=== PATIENT | female | born 1935 | race Asian ===

== ENCOUNTER 2016-05-21 12:49 | Inpatient (IN) | payer OTHER ==
[2016-05-21 13:29] LABS: ABSOLUTE NEUTROPHIL COUNT 4.9 K/mm3 (1.8-7.7); BASO % 0.6 % (0.2-1.0); EOS # 0.1 (0.0-0.5); EOS % 1.9 % (0.9-2.9); HEMATOCRIT 44.2 % (37.0-47.0); HEMOGLOBIN 13.9 gm/l (12.0-16.0); IMM NEUT% 0.5 % (0-1); LYMPH # 0.8 (1.0-4.8); LYMPH % 12.9 % (15-45); MEAN CORPUSCULAR HEMOGLOBIN 30.8 pg (27.0-31.0); MEAN CORPUSCULAR HGB CONC 31.4 g/dl (33.0-37.0); MEAN PLATELET VOLUME 10.4 fl (7.4-10.4); MONO # 0.4 (0.0-0.8); MONO % 6.5 % (4-12); NEUT % 77.6 % (43-75); PLATELET COUNT 147 K/mm3 (130-400); RED CELL DISTRIBUTION WIDTH 13.6 % (11.5-14.5)
[2016-05-21 13:40] LABS: ALB/GLOB RATIO 1.4 (>1.0); ALBUMIN 4.3 gm/dL (3.5-5.7); CALCIUM 9.9 mg/dL (8.6-10.3); MAGNESIUM 2.1 mg/dL (1.9-2.7)
[2016-05-21 13:53] LABS: CKMB 4.5 ng/ml (<4.3); TROPONIN I < 0.05 ng/ml (<0.05)
[2016-05-21 14:01] LABS: ARTERIAL BLOOD GAS BASE EXCESS -5.7 mmol/L (-2.0-2.0); ARTERIAL BLOOD GAS HCO3 24.1 mmol/L (22.0-28.0); ARTERIAL BLOOD GAS PCO2 68.1 mmHg (35.0-45.0); ARTERIAL BLOOD GAS PO2 111.5 mmHg (80.0-90.0); ARTERIAL BLOOD GAS pH 7.167 (7.350-7.450)
[2016-05-21] MEDS ORDERED: ALBUTEROL SULFATE 5MG/ML INHALANT 20 ML BOT ONE (14:06)
--- NOTE | 2016-05-21 14:07 | CT ---
C-SPINE W/O CON COMPARISON: None. HISTORY: Altered mental status. Decreased level of consciousness. Possible neck injury. Technique: Using a [employer] Aquilion [address] scanner, images obtained through the cervical spine. An automated dose reduction technique was used to minimize patient radiation dose. Dose information: CTDIvol (mGy) 14.40 DLP(mGycm): 324.00 FINDINGS: Vertebral alignment: Moderate dextroscoliosis. Grade 1 anterolisthesis of C4 and C5. C1-2 alignment: Normal. Craniocervical junction: Normal. Vertebral bodies: No fracture bone destruction. Osteophytes at C5-6, C6-7, and C7-T1. Intervertebral discs: Calcification and moderate narrowing at C3-4. Vacuum phenomenon and moderate narrowing at C4-5. Moderate narrowing at C5-6. Severe narrowing at C6-7. Spinal canal: Normal. Facet joints and posterior arches: Multilevel facet joint narrowing and osteophytes. Ankylosis on the right at C3-4. Prevertebral soft tissues: No soft tissues 1. Severe atherosclerotic calcific plaquing of the left common carotid bifurcation and the origin of the left internal carotid artery. Lung apices and superior mediastinum: Normal. Airway: Normal. IMPRESSION: 1. No acute finding. No fracture or dislocation. 2. Moderate dextroscoliosis. Degenerative anterolisthesis of C4 and C5. 3. Spondylosis, moderate C3-4, C4-5, C5-6, severe C6-7. 4. 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 5. Severe atherosclerotic calcification of the left common carotid bifurcation and the proximal left internal carotid artery. Report was sent to the emergency department electronic medical record system 05/21/2016 at 14:05
--- NOTE | 2016-05-21 14:07 | CT ---
HEAD W/O CON COMPARISON: CT head without contrast 08/24/2009 HISTORY: 80-year-old female with altered mental status. TECHNIQUE: Using a [employer] Aquilion [address] scanner, images were obtained through the head. An automated dose reduction technique was used to minimize patient radiation dose. DOSE INFORMATION: CTDIvol (mGy): 51.70 DLP(mGycm): 938.90 FINDINGS: Mass: None Intracranial Hemorrhage: None Acute Infarction: None Cerebral hemispheres: No acute finding. Scattered foci of low-attenuation in the white matter both hemispheres. Basal ganglia: Normal Thalami: Normal Brainstem: Normal Cerebellum: Normal Ventricles: Normal Basilar cisterns: Normal Corpus callosum: Normal Pituitary fossa: Normal Middle ears and mastoid air cells: Normal Orbits and sinuses: Bilateral aphakia. 8 mm cyst, anterior left maxillary sinus. Skull and scalp: Normal Dural sinuses and vessels: Normal IMPRESSION: 1. No acute finding. No intracranial hemorrhage or cerebral edema. Scattered chronic small vessel schema change in the white matter of both cerebral hemispheres. 2. Incidentally noted bilateral aphakia and a small mucus retention cyst in the left maxillary sinus. The report was sent to the emergency department electronic medical record system 05/21/2016 at 14:05
[2016-05-21] MEDS ORDERED: DEXAMETHASONE SOD PHOS 10 MG/1 ML VIAL ONE (14:14)
--- NOTE | 2016-05-21 14:16 | RAD ---
CHEST - 1 VIEW COMPARISON: Portable chest x-ray, 07/07/2015 HISTORY: Altered level of consciousness. FINDINGS: Views: Frontal chest. Lungs: The inspiratory volumes are small, which probably explains increased interstitial opacity and atelectasis at the bases. Heart and vessels: Normal Trachea and bronchi: Normal Mediastinum and helga: Normal Costophrenic sulci: Normal Chest wall and bones: Normal Upper abdomen: Normal. IMPRESSION: Negative one view chest.
[2016-05-21 14:19] LABS: URINE BILIRUBIN NEGATIVE (NEGATIVE); URINE BLOOD NEGATIVE (NEGATIVE); URINE GLUCOSE (UA) NEGATIVE (NEGATIVE); URINE LEUKOCYTE ESTERASE NEGATIVE (NEGATIVE); URINE NITRITE NEGATIVE (NEGATIVE); URINE PROTEIN TRACE (NEGATIVE); URINE UROBILINOGEN NORMAL (0-1 mg/dl)
[2016-05-21 14:21] LABS: URINE APPEARANCE CLEAR; URINE COLOR YELLOW
[2016-05-21] MEDS ORDERED: SODIUM CHLORIDE 0.9% 250 ML IV ONE (14:44)
[2016-05-21] MEDS ORDERED: AZITHROMYCIN 500 MG VIAL ONE (14:44)
[2016-05-21 15:05] LABS: ARTERIAL BLOOD GAS HCO3 23.6 mmol/L (22.0-28.0); ARTERIAL BLOOD GAS PCO2 59.9 mmHg (35.0-45.0); ARTERIAL BLOOD GAS PO2 54.2 mmHg (80.0-90.0); ARTERIAL BLOOD GAS pH 7.214 (7.350-7.450)
[2016-05-21] MEDS ORDERED: MENTHOL/CETYLPYRD 1 EACH LOZENGE PO PRN (15:30)
[2016-05-21] MEDS ORDERED: BISACODYL 5 MG TABLET.EC PO PRN (15:30)
[2016-05-21] MEDS ORDERED: D5 1/2NS with 20 mEq KCL 1,000 ML IV SCH (15:30)
[2016-05-21] MEDS ORDERED: ACETAMINOPHEN 650 MG SUP PR PRN (15:30)
[2016-05-21] MEDS ORDERED: BISACODYL 10 MG SUP PR PRN (15:30)
[2016-05-21] MEDS ORDERED: MAGNESIUM HYDROXIDE 30 ML UDCUP PO PRN (15:30)
[2016-05-21] MEDS ORDERED: SODIUM CHLORIDE 0.9% 100 ML IV PRN (15:30)
[2016-05-21] MEDS ORDERED: BLISTEX LIPSTICK 1 EACH TP PRN (15:30)
[2016-05-21] MEDS ORDERED: CEFTRIAXONE SODIUM 1 G VIAL ONE (15:33)
[2016-05-21] MEDS ORDERED: ALBUTEROL NEB 2.5 MG/3 ML VIAL.NEB NEB PRN (15:34)
[2016-05-21] MEDS ORDERED: PUMP TUBING ONE (15:35)
[2016-05-21] MEDS: ALBUTEROL/IPRATROPIUM 2.5/0.5 MG 3 ML/EACH DOSE NEB SCH ×3 (16:17→21:43)
[2016-05-21 16:24] VITALS: BMI 29.7
[2016-05-21] MEDS ORDERED: SODIUM CHLORIDE 0.9% FLUSH 10 ML ONE (16:33)
[2016-05-21] MEDS ORDERED: IV START KIT ONE (16:33)
[2016-05-21] MEDS: PANTOPRAZOLE SODIUM 40 MG VIAL IV SCH (16:46)
[2016-05-21] MEDS: METHYLPRED SOD SUCCINATE 40 MG VIAL IV SCH (16:46)
[2016-05-21] MEDS: CEFTRIAXONE 1 GRAM DUPLEX 50 ML IV SCH (17:34)
[2016-05-21] MEDS ORDERED: FUROSEMIDE 40 MG/4 ML VIAL IV ONE (17:54)
[2016-05-21] MEDS ORDERED: LACTATED RINGERS 500 ML IV ONE (18:09)
[2016-05-21] MEDS: DOCUSATE SODIUM 100 MG CAPSULE PO SCH (21:19)
--- NOTE | 2016-05-21 21:56 | HP ---
ASHLEY HOROWITZ [id number] DATE OF ADMISSION: 05/21/2016 CHIEF COMPLAINT: Altered level of consciousness. HISTORY OF PRESENT ILLNESS: The patient is an 80-year-old female well-known to the Hospitalist Service for chronic hypoxic and hypercapneic respiratory failure associated with chronic obstructive pulmonary disease who was brought to the [facility] Emergency Department because of altered level of consciousness and shortness of breath. The family has noticed these symptoms for the last two days and they have been getting worse. They were actually able to transport her to the hospital using a wheelchair and a private vehicle. In the emergency department she was found to have acute worsening of her chronic hypoxic and hypercapnic respiratory failure. Her initial PC02 was 68 on supplemental oxygen, with a pH of 7.17. She was treated with BiPAP therapy and showed improvement in her pH to 7.21 and some improvement in her level of consciousness. History is limited and obtained from the family. The patient is Albanian-speaking only and due to her decreased level of consciousness is not able to provide much history. The patient's daughters report that she has had a chronic cough, but does not seem to be any worse than usual. REVIEW OF SYSTEMS: Negative for any recent fevers or chills. She has had no upper respiratory symptoms. She has a chronic nonproductive cough. She has chronic wheezing gets frequent nebulizer treatments at home. She has had no increased lower extremity edema. No reports of any chest pain. No reports of any nausea, vomiting or abdominal pain. She did have a loose stool yesterday. No new pain complaints. No history of any headaches, fainting, blackouts or seizures. She has had no falls. She is basically bedbound, but transfers using a wheelchair. She has had no urinary complaints. Review of systems is otherwise negative. PAST MEDICAL HISTORY: 1. Notable for multiple hospitalizations for COPD exacerbations and hypoxic and hypercapnic respiratory failure. Her last hospitalization was in July of 2015 and June of 2015 for similar problems. She does have chronic respiratory failure and is on chronic oxygen therapy, usually at one liter by nasal cannula. She does not have CPAP at home. 2. She has a history of some asthma as well and is according to the family on chronic prednisone therapy, but the dose is unknown, and the med list from the primary care provider does not list this. 3. She has had a history of chronic essential hypertension. 4. Osteoporosis. 5. Paroxysmal atrial fibrillation. 6. She has had a history of obesity, with a body mass index around 30. 7. She has had some chronic diastolic heart failure, with a preserved ejection fraction. Her last echocardiogram was in July of 2015, with an ejection fraction of 55-60%, and this showed elevated right ventricular systolic pressures up to 72 mmHg, with a moderate amount of tricuspid regurgitation. 8. She is chronic nonambulatory status due to a prior femur fracture which was never surgically treated. 9. She has a history of osteoporosis. 10. Some gastroesophageal reflux disease. PAST SURGICAL HISTORY: Significant for: 1. An open cholecystectomy in August of 2009. 2. Bilateral cataract surgeries. ALLERGIES: Adverse reactions have been documented to: 1. Enoxaparin, which caused thrombocytopenia in the past. 2. She has also poorly tolerated hydrocodone, with increased confusion. CURRENT MEDICATIONS: Consist of: 1. Verapamil extended-release. She is prescribed 360 mg once daily. The daughters initially states she was taking it twice daily. This needs to be confirmed that she should be on it once a day. 2. She also takes sucralfate 1 gram before meals and at bedtime. 3. Zoloft 25 mg daily. 4. Prednisone, dose unknown, but presumed to be 10 mg daily. 5. Lisinopril 20 mg twice daily. 6. Imdur SR 30 mg twice daily. 7. Lasix 20 mg twice daily. 8. Colace 100 mg daily. 9. QVAR 80 mcg per actuation two puffs twice daily. 10. Enteric-coated aspirin 81 mg daily. 11. Albuterol sulfate 2.5 mg nebulized every four hours as needed for wheezing. FAMILY HISTORY: Not well known. SOCIAL HISTORY: She lives with and is cared for by one of her daughters. She had nine children. She immigrated from [place] and lives in [place]. There is no history of tobacco, alcohol or illicit drug use. Immunization status is unknown. Primary care provider is Dr. Erica Matos. PHYSICAL EXAMINATION: VITAL SIGNS: Current vital signs show a temperature of 98.8. Pulse 108. Blood pressure 134/74. Respirations 13. Oxygen saturation is 100%, with an FI02 of 22. Body mass index is 29.8. GENERAL: This is an elderly female who is somnolent, but in no acute distress. HEENT: Exam shows poor dentition. No lesions. NECK: Supple, without lymphadenopathy or thyromegaly. LUNGS: Show diminished breath sounds throughout, with decreased breath sounds in the bases and a prolonged expiratory wheeze. CARDIOVASCULAR: Reveals a regular rate and rhythm, without a murmur. ABDOMEN: Soft, nontender and nondistended, with positive bowel sounds. EXTREMITIES: Showed no peripheral edema. Pulses are diminished, but palpable at the dorsalis pedis arteries bilaterally. EKG: A 12-lead EKG shows a right bundle branch block, with sinus tachycardia. IMAGIN. A portable chest x-ray shows the decreased inspiratory volumes. A CT of the cervical spine shows atherosclerosis of the left common carotid and spondylosis and osteoarthritis of the facet joints, but no acute findings. 2. A CT of the brain shows no acute findings, but chronic small vessel ischemic changes are seen. LABS: CBC shows a white count of 6.3, hemoglobin of 13.9 and a platelet count of 147,000. Lactate is normal at 0.6. Initial arterial blood gas showed a pH of 7.17, a P02 of 111 on supplemental oxygen and a PC02 of 68. Follow-up after BiPAP showed a pH of 7.21, P02 of 54 and a PC02 of 59. Chemistry profile showed a sodium of 140, potassium 4.3, carbon dioxide 27, BUN of 43, creatinine 1.0 and glucose 102. Liver function tests are normal. CK-MB is 4.5. Total CPK was not measured. Troponin-I was less than 0.05. Albumin is 4.3, globulin is 3.1 and lipase is 19. Urine was slightly concentrated, with a specific gravity of 1.020, otherwise unremarkable. Serologies are negative for influenza A and B antigen. ASSESSMENT: 1. Patient has COPD exacerbation, with chronic severe pulmonary hypertension and chronic diastolic heart failure. 2. She has acute on chronic hypoxic and hypercapnic respiratory failure. 3. She has a history of asthma. 4. I suspect she has a bacterial bronchitis. I do not see evidence of pneumonia at this time. 5. She has a history of chronic essential hypertension, which appears to be stable. 6. Chronic gastroesophageal reflux disease, which appears to be stable. 7. Obesity, which is improving. She has had some weight loss and her body mass index is down to 29.8. PLAN: She is admitted to the ICU on BiPAP. I am going to cover her with Zithromax and Rocephin, as well as Solu-Medrol, DuoNebs and albuterol. She will be put on Protonix for GI prophylaxis. At this point she is NPO due to her decreased level of consciousness. She will be given IV fluids. I am going to go ahead and give her a single dose of IV Lasix because of her pulmonary hypertension and concerns about this contributing to her respiratory failure. VTE prophylaxis is indicated, with moderate risk, and mechanical measures are used because of her history of thrombocytopenia associated with heparin analogs. Further treatment and recommendations will depend on her hospital course. At this time her code status appears to be full code, and I think that should be discussed with the family during the hospital stay. cc: Dr. Erica Matos
[2016-05-21] MEDS ORDERED: D5 1/2NS with 10mEq KCL 1,000 ML IV SCH (22:34)
[2016-05-22] MEDS: D5 1/2NS with 20 mEq KCL 1,000 ML IV SCH ×3 (00:47→12:34)
[2016-05-22] MEDS: METHYLPRED SOD SUCCINATE 40 MG VIAL IV SCH ×3 (00:49→17:19)
[2016-05-22 05:41] LABS: ABSOLUTE NEUTROPHIL COUNT 4.2 K/mm3 (1.8-7.7); BASO % 0.2 % (0.2-1.0); HEMATOCRIT 37.2 % (37.0-47.0); HEMOGLOBIN 11.9 gm/l (12.0-16.0); IMM NEUT% 0.2 % (0-1); LYMPH # 0.2 (1.0-4.8); LYMPH % 4.4 % (15-45); MEAN CELL VOLUME 96.4 fl (81.0-99.0); MEAN CORPUSCULAR HEMOGLOBIN 30.8 pg (27.0-31.0); MEAN PLATELET VOLUME 10.7 fl (7.4-10.4); MONO # 0.2 (0.0-0.8); MONO % 3.7 % (4-12); NEUT % 91.5 % (43-75); PLATELET COUNT 128 K/mm3 (130-400); RED CELL DISTRIBUTION WIDTH 13.6 % (11.5-14.5)
[2016-05-22 06:07] LABS: ALB/GLOB RATIO 1.5 (>1.0); ALBUMIN 3.6 gm/dL (3.5-5.7)
[2016-05-22 06:32] LABS: BAND 1 % (0-10); BASOPHIL 0 % (0-1); EOSINOPHIL 0 % (1-3); LYMPHOCYTE 3 % (15-45); MONOCYTE 4 % (4-12); NEUTROPHILS 92 % (43-75); PLATELET ESTIMATE NORMAL (NORMAL); TOTAL CELLS COUNTED 100
[2016-05-22] MEDS: ALBUTEROL/IPRATROPIUM 2.5/0.5 MG 3 ML/EACH DOSE NEB SCH ×5 (07:25→21:45)
[2016-05-22] MEDS: LISINOPRIL 20 MG TABLET PO SCH ×2 (08:43→20:09)
[2016-05-22] MEDS: DOCUSATE SODIUM 100 MG CAPSULE PO SCH ×2 (08:43→20:09)
[2016-05-22] MEDS: VERAPAMIL HCL 180 MG PO SCH (08:43)
[2016-05-22] MEDS: SERTRALINE HCL 50 MG TABLET PO SCH (08:43)
[2016-05-22] MEDS: ASPIRIN (ENTERIC COATED) 81 MG TABLET.EC PO SCH (08:43)
[2016-05-22] MEDS ORDERED: SERTRALINE HCL 25 MG PO SCH (09:00)
[2016-05-22 10:09] LABS: VENOUS BLOOD GAS BASE EXCESS -4.6 mmol/L (-2.0-2.0); VENOUS BLOOD GAS HCO3 20.2 mmol/L (22.0-27.0)
[2016-05-22] MEDS: AZITHROMYCIN 500 MG in SODIUM CHLORIDE 0.9% 250 ML IV SCH (14:51)
[2016-05-22] MEDS ORDERED: CEFTRIAXONE 1 GRAM DUPLEX 50 ML IV SCH (15:30)
[2016-05-22] MEDS: PANTOPRAZOLE SODIUM 40 MG VIAL IV SCH (17:19)
[2016-05-22] MEDS: ACETAMINOPHEN 325 MG TABLET PO PRN (17:19)
[2016-05-22] MEDS: CEFTRIAXONE 1 GRAM DUPLEX 50 ML IV SCH (17:19)
--- NOTE | 2016-05-22 18:03 | PDOC43 ---
- Subjective Chief Complaint: Decreased level of consciousness tolerated Bipap overnight Subjective: Denies Chest Pain, Denies Vomiting, Denies Fever - Objective Vital Signs Temperature 99.5 F 05/22/16 07:21 Pulse Rate 88 05/22/16 07:21 Respiratory Rate 24 05/22/16 07:21 Blood Pressure 172/86 05/22/16 07:21 O2 Saturation by Pulse Oximetry 99 05/22/16 07:21 Oxygen Delivery Method Bi-PAP Intake and Output 05/21/16 05/22/16 05/23/16 06:59 06:59 06:59 Intake Total 2013 Output Total 715 Balance 1299 General: Alert, Cooperative, Mild Distress HEENT: Mucous membr. moist/pink Lungs: Diminished at Bases, Other (some exp wheezing) Cardiovascular: Regular Rate and Rhythm Abdomen: Soft, Normal Bowel Sounds, Non-Distended, No Tenderness Extremities: No Edema Skin: Warm, Dry, Intact Laboratory 05/22/16 05:05 05/22/16 05:05 05/22/16 05:05 RBC 3.86 L MCHC 32.0 L BUN 38 H Total Protein 6.0 L Current Medications: Current meds reviewed in EMR. - Problems: Assessment/Plan (1) COPD exacerbation Status: AcuteAssessment/Plan: with suspected acute bacterial bronchitis versus asthma exacerbation-cont solumedrol, rocephin and zithromax, wean off bipap and resume usual o2, cont Bipap as backup (2) Respiratory failure Qualifiers: Chronicity: acute on chronic Respiratory failure complication: hypoxia and hypercapnia Qualifier Code: (J96.21) Acute and chronic respiratory failure with hypoxia Status: AcuteAssessment/Plan: on chronic home oxygen, weaning bipap to usual oxygen supplementation of 1-2 L via nc (3) Asthma Qualifiers: Asthma severity: moderate persistent Asthma complication type: with acute exacerbation Qualifier Code: (J45.41) Moderate persistent asthma with (acute) exacerbation Status: ChronicAssessment/Plan: on home nebs, chronic prednisone, Qvar and albuterol-added solu-medrol (4) CHF (congestive heart failure) Qualifiers: Congestive heart failure type: diastolic Congestive heart failure chronicity: chronic Qualifier Code: (I50.32) Chronic diastolic (congestive) heart failure Status: ChronicAssessment/Plan: doubt acute exacerbation-resume lasix in am (5) A-fib Qualifiers: Atrial fibrillation type: paroxysmal Qualifier Code: (I48.0) Paroxysmal atrial fibrillation Status: AcuteAssessment/Plan: Currently in NSR, poor candidate for anticoagulation due to fall risk (6) Hypertension Qualifiers: Hypertension type: essential hypertension Qualifier Code: (I10) Essential (primary) hypertension Status: AcuteAssessment/Plan: resuming usual meds (7) GERD (gastroesophageal reflux disease) Qualifiers: Esophagitis presence: esophagitis presence not specified Qualifier Code : (K21.9) Gastro-esophageal reflux disease without esophagitis Status: ChronicAssessment/Plan: on chronic carafate-added PPI due to steroids (8) Obesity (BMI 30.0-34.9) Status: ChronicAssessment/Plan: complicates care VTE Prophylaxis: mech measures(allergic to enoxaparin) Disposition: home in 1-2 days
[2016-05-22] MEDS: ISOSORBIDE MONONITRATE 30 MG TAB.SR PO SCH (20:09)
[2016-05-22] MEDS: FUROSEMIDE 20 MG TABLET PO SCH (20:09)
[2016-05-23] MEDS: METHYLPRED SOD SUCCINATE 40 MG VIAL IV SCH ×2 (00:37→08:41)
[2016-05-23] MEDS: ALBUTEROL/IPRATROPIUM 2.5/0.5 MG 3 ML/EACH DOSE NEB SCH ×4 (08:31→20:39)
[2016-05-23] MEDS: ACETAMINOPHEN 325 MG TABLET PO PRN (08:41)
[2016-05-23] MEDS: DOCUSATE SODIUM 100 MG CAPSULE PO SCH (08:42)
[2016-05-23] MEDS: ASPIRIN (ENTERIC COATED) 81 MG TABLET.EC PO SCH (08:42)
[2016-05-23] MEDS: ISOSORBIDE MONONITRATE 30 MG TAB.SR PO SCH ×2 (08:42→20:47)
[2016-05-23] MEDS: FUROSEMIDE 20 MG TABLET PO SCH ×2 (08:42→16:06)
[2016-05-23] MEDS: LISINOPRIL 20 MG TABLET PO SCH ×2 (08:42→20:47)
[2016-05-23] MEDS: SERTRALINE HCL 50 MG TABLET PO SCH (08:42)
[2016-05-23] MEDS: VERAPAMIL HCL 180 MG PO SCH (08:42)
--- NOTE | 2016-05-23 11:20 | PDOC43 ---
- Subjective Chief Complaint: Decreased level of consciousness Awake and alert, feels better but still more dyspnic than usual. C/o pain all over body. - Objective Vital Signs Temperature 97.4 F 05/23/16 07:10 Pulse Rate 96 05/23/16 08:32 Respiratory Rate 20 05/23/16 08:32 Blood Pressure 178/112 05/23/16 07:10 O2 Saturation by Pulse Oximetry 96 05/23/16 08:32 Oxygen Delivery Method Nasal Cannula Oxygen Flow Rate 0.5 Intake and Output 05/22/16 05/23/16 05/24/16 06:59 06:59 06:59 Intake Total 2013 3661 Output Total 715 4000 Balance 1299 -339 General: Alert, Cooperative, No Acute Distress HEENT: Mucous membr. moist/pink Lungs: Other (poor air movement, insp wheezes throughout) Cardiovascular: Regular Rate and Rhythm Abdomen: Soft, Normal Bowel Sounds, No Tenderness, No Masses Extremities: Normal Pulses, No Edema Skin: Normal Color Neurological: Normal Speech Psych/Mental Status: Normal Mood Laboratory 05/22/16 05:05 05/22/16 05:05 Current Medications: Current meds reviewed in EMR. - Problems: Assessment/Plan (1) COPD exacerbation Status: AcuteAssessment/Plan: With acute hypercapnic encephalopathy present on admit, improved with BiPAP. with suspected acute bacterial bronchitis versus asthma exacerbation transition from solu-medrol back to prednisone, continue ceftriaxone and azithromycin. (2) Respiratory failure Qualifiers: Chronicity: acute on chronic Respiratory failure complication: hypoxia and hypercapnia Qualifier Code: (J96.21) Acute and chronic respiratory failure with hypoxia Status: AcuteAssessment/Plan: on chronic home oxygen supplementation of 1-2 L via nc (3) A-fib Qualifiers: Atrial fibrillation type: paroxysmal Qualifier Code: (I48.0) Paroxysmal atrial fibrillation Status: AcuteAssessment/Plan: Currently in NSR, poor candidate for anticoagulation due to fall risk (4) CHF (congestive heart failure) Qualifiers: Congestive heart failure type: diastolic Congestive heart failure chronicity: chronic Qualifier Code: (I50.32) Chronic diastolic (congestive) heart failure Status: ChronicAssessment/Plan: without acute exacerbation-resume usual meds (5) HTN (hypertension), benign Status: ChronicAssessment/Plan: BP high today, may be due to pain, follow. (6) GERD (gastroesophageal reflux disease) Qualifiers: Esophagitis presence: esophagitis presence not specified Qualifier Code : (K21.9) Gastro-esophageal reflux disease without esophagitis Status: ChronicAssessment/Plan: on chronic carafate-added PPI due to steroids (7) Obesity (BMI 30.0-34.9) Status: ChronicAssessment/Plan: complicates care contributing to hypo-ventilation, HTN and GERD. VTE Prophylaxis: mech measures (allergic to enoxaparin) Disposition: home in 1-2 days
[2016-05-23] MEDS: TRAMADOL HCL 50 MG TABLET PO PRN ×2 (12:31→20:47)
[2016-05-23] MEDS: AZITHROMYCIN 500 MG in SODIUM CHLORIDE 0.9% 250 ML IV SCH (14:44)
[2016-05-23] MEDS: BECLOMETHASONE DIPROPIONATE IH SCH ×2 (15:06→15:07)
[2016-05-23] MEDS: PANTOPRAZOLE SODIUM 40 MG VIAL IV SCH (16:06)
[2016-05-23] MEDS ORDERED: PUMP TUBING ONE (17:07)
[2016-05-23] MEDS: CEFTRIAXONE 1 GRAM DUPLEX 50 ML IV SCH (17:13)
[2016-05-24] MEDS: DOCUSATE SODIUM 100 MG CAPSULE PO SCH ×2 (01:00→08:52)
[2016-05-24] MEDS: TRAMADOL HCL 50 MG TABLET PO PRN ×2 (02:25→10:27)
[2016-05-24] MEDS: ALBUTEROL/IPRATROPIUM 2.5/0.5 MG 3 ML/EACH DOSE NEB SCH (08:01)
[2016-05-24 08:51] VITALS: BP 120/73
[2016-05-24] MEDS: VERAPAMIL HCL 180 MG PO SCH (08:51)
[2016-05-24] MEDS: ASPIRIN (ENTERIC COATED) 81 MG TABLET.EC PO SCH (08:52)
[2016-05-24] MEDS: ISOSORBIDE MONONITRATE 30 MG TAB.SR PO SCH (08:52)
[2016-05-24] MEDS: FUROSEMIDE 20 MG TABLET PO SCH (08:53)
[2016-05-24] MEDS: LISINOPRIL 20 MG TABLET PO SCH (08:54)
[2016-05-24] MEDS: SERTRALINE HCL 50 MG TABLET PO SCH (08:54)
[2016-05-24] MEDS ORDERED: PREDNISONE 20 MG TABLET PO SCH (09:00)
--- NOTE | 2016-05-24 10:32 | PDOC5 ---
ADMIT DATE: 05/21/16 DISCHARGE DATE: 05/24/16 ADMISSION DIAGNOSES: Acute on chronic hypercapnic respiratory failure PROCEDURES PERFORMED THIS HOSPITALIZATION: CT brain--no acute findings, chronic atrophy and small vessel ischemic changes. CT c-spine no acute findings, severe osteoarthritis and atherosclerosis CONSULTATIONS: none HOSPITAL COURSE: This is a 80 year old brought in by family with decreased mental status and increased dyspnea. She was found to be hypercapnic and acidotic. She was admitted to [facility], treated with steroids and antibiotics. She had gradual improvement and return to her compromised baseline. On 05/24 she is at her baseline and family desires to take her home. - Exam Vital Signs Temperature 98.0 F 05/24/16 07:03 Pulse Rate 90 05/24/16 08:00 Respiratory Rate 18 05/24/16 09:03 Blood Pressure 120/73 05/24/16 08:50 O2 Saturation by Pulse Oximetry 92 05/24/16 08:00 Oxygen Delivery Method Nasal Cannula Oxygen Flow Rate 1 General: Alert, Cooperative, No Acute Distress HEENT: Mucous membr. moist/pink Lungs: Clear to Auscultation Bilaterally, Diminished at Bases Cardiovascular: Regular Rate and Rhythm Abdomen: Soft, Normal Bowel Sounds, No Tenderness, No Masses Extremities: Pulses Diminished but Palpable, No Edema Skin: Normal Color Neurological: Normal Speech Psych/Mental Status: Normal Mood - Results Laboratory 05/22/16 05:05 05/22/16 05:05 - Problems:Assessment/Plan (1) COPD exacerbation Status: AcuteAssessment/Plan: With acute hypercapnic encephalopathy present on admit, improved with BiPAP. with suspected acute bacterial bronchitis versus asthma exacerbation taper prednisone and change abx to PO (2) Respiratory failure Qualifiers: Chronicity: acute on chronic Respiratory failure complication: hypoxia and hypercapnia Qualifier Code: (J96.21) Acute and chronic respiratory failure with hypoxia Status: AcuteAssessment/Plan: on chronic home oxygen supplementation of 1-2 L via nc (3) A-fib Qualifiers: Atrial fibrillation type: paroxysmal Qualifier Code: (I48.0) Paroxysmal atrial fibrillation Status: AcuteAssessment/Plan: Currently in NSR, poor candidate for anticoagulation due to fall risk (4) CHF (congestive heart failure) Qualifiers: Congestive heart failure type: diastolic Congestive heart failure chronicity: chronic Qualifier Code: (I50.32) Chronic diastolic (congestive) heart failure Status: ChronicAssessment/Plan: without acute exacerbation-resume usual meds (5) HTN (hypertension), benign Status: ChronicAssessment/Plan: well controlled (6) GERD (gastroesophageal reflux disease) Qualifiers: Esophagitis presence: esophagitis presence not specified Qualifier Code : (K21.9) Gastro-esophageal reflux disease without esophagitis Status: ChronicAssessment/Plan: on chronic carafate-added PPI due to steroids (7) Obesity (BMI 30.0-34.9) Status: ChronicAssessment/Plan: complicates care contributing to hypo-ventilation, HTN and GERD. - Disposition: Disposition: home with family - Discharge Plan Prescriptions: Cefuroxime Axetil 500 mg [Ceftin] 500 mg PO BID #14 tablet Pantoprazole Sodium [Pantoprazole Sodium 40 mg tablet] 40 mg PO DAILY #30 tablet. Prednisone [PREDNISONE 20 MG (SHF)] 10 mg PO DAILY #60 tablet Follow-Up: Bobby Dick PA-C [Referring] - 05/30/16 9:30 am Condition: Fair Disposition: Home
== END 2016-05-24 11:55 | disposition home or self-care (01) | DRG 189 ==
LOC: ED 12:49 → ICU 15:11 → MS 05-23 13:09
PROVIDERS: ADMIT Family Medicine; ATTEND Family Medicine
DX: J96.22 Acute and chronic respiratory failure with hypercapnia (principal); J44.1 Chronic obstructive pulmonary disease with (acute) exacerbation; I50.32 Chronic diastolic (congestive) heart failure; G31.9 Degenerative disease of nervous system, unspecified; J96.21 Acute and chronic respiratory failure with hypoxia; I48.0 Paroxysmal atrial fibrillation; I11.0 Hypertensive heart disease with heart failure; K21.9 Gastro-esophageal reflux disease without esophagitis; E66.9 Obesity, unspecified; Z68.30 Body mass index [BMI] 30.0-30.9, adult; Z99.81 Dependence on supplemental oxygen

== ENCOUNTER 2016-07-21 03:37 | Inpatient (IN) | payer OTHER ==
[2016-07-21 04:28] LABS: ABSOLUTE NEUTROPHIL COUNT 7.1 K/mm3 (1.8-7.7); BASO % 0.5 % (0.2-1.0); EOS # 0.1 (0.0-0.5); EOS % 0.7 % (0.9-2.9); HEMATOCRIT 32.6 % (37.0-47.0); HEMOGLOBIN 10.6 gm/l (12.0-16.0); IMM NEUT% 0.4 % (0-1); LYMPH # 0.4 (1.0-4.8); LYMPH % 5.3 % (15-45); MEAN CORPUSCULAR HEMOGLOBIN 30.9 pg (27.0-31.0); MEAN CORPUSCULAR HGB CONC 32.5 g/dl (33.0-37.0); MEAN PLATELET VOLUME 10.8 fl (7.4-10.4); MONO # 0.7 (0.0-0.8); MONO % 7.8 % (4-12); NEUT % 85.3 % (43-75); PLATELET COUNT 146 K/mm3 (130-400); RED CELL DISTRIBUTION WIDTH 13.4 % (11.5-14.5)
[2016-07-21] MEDS ORDERED: HYDROMORPHONE HCL 0.5 MG/0.5 ML SYRINGE ONE (04:41)
[2016-07-21] MEDS ORDERED: ONDANSETRON 4 MG/2ML 2 ML VIAL ONE (04:41)
[2016-07-21 05:09] LABS: ALB/GLOB RATIO 1.8 (>1.0); ALBUMIN 3.8 gm/dL (3.5-5.7)
[2016-07-21 05:22] LABS: PH,URINE 6.5 (5.0-8.0); SPECIFIC GRAVITY 1.015 (1.001-1.030); URINE BILIRUBIN NEGATIVE (NEGATIVE); URINE BLOOD NEGATIVE (NEGATIVE); URINE GLUCOSE (UA) NEGATIVE (NEGATIVE); URINE LEUKOCYTE ESTERASE NEGATIVE (NEGATIVE); URINE NITRITE NEGATIVE (NEGATIVE); URINE PROTEIN TRACE (NEGATIVE); URINE UROBILINOGEN NORMAL (0-1 mg/dl)
[2016-07-21 05:31] LABS: URINE APPEARANCE CLEAR; URINE COLOR YELLOW
[2016-07-21] MEDS ORDERED: ALBUTEROL NEB 2.5 MG/3 ML VIAL.NEB NEB PRN (06:31)
[2016-07-21] MEDS ORDERED: BISACODYL 5 MG TABLET.EC PO PRN (06:32)
[2016-07-21] MEDS ORDERED: MENTHOL/CETYLPYRD 1 EACH LOZENGE PO PRN (06:32)
[2016-07-21] MEDS ORDERED: BLISTEX LIPSTICK 1 EACH TP PRN (06:32)
[2016-07-21] MEDS ORDERED: SODIUM CHLORIDE 0.9% 100 ML IV PRN (06:32)
[2016-07-21] MEDS ORDERED: DIPHENHYDRAMINE HCL 50 MG/1 ML VIAL IV PRN (06:32)
[2016-07-21] MEDS ORDERED: BISACODYL 10 MG SUP PR PRN (06:32)
[2016-07-21] MEDS ORDERED: MAGNESIUM HYDROXIDE 30 ML UDCUP PO PRN (06:32)
[2016-07-21] MEDS ORDERED: FENTANYL 100 MCG/2 ML VIAL IV PRN (06:37)
[2016-07-21] MEDS ORDERED: LACTATED RINGERS 1,000 ML IV SCH (06:45)
--- NOTE | 2016-07-21 07:47 | RAD ---
Clinical Indication: Patient fell out of wheel chair this morning. Initial encounter Comparison: 04/03/2016. Findings: Three views of the right shoulder. Bones: No fracture or dislocation. Diffuse osteopenia. Subchondral cystic change is present with rim osteophytes along the inferior humeral articular margin. There may have been prior Hill-Sachs deformity. Joints: Unremarkable. Soft tissue: Normal. Limited evaluation of the right hemithorax: Unremarkable. Impression: No fracture or dislocation. Degenerative and other findings as above.
--- NOTE | 2016-07-21 07:52 | RAD ---
HISTORY: Fall from wheelchair. Initial encounter. COMPARISONS: CT abdomen and pelvis 08/18/2009 FINDINGS: AP pelvis with AP and crosstable lateral views of the right hip are obtained. Bones: Transverse oblique, comminuted fracture of the proximal femur is present. There is anterior displacement of approximately 1 shafts width with slight dorsal angulation. There may be some mild lateral deviation as well. Proximal retraction and overlap of approximately 8.6 cm. The patient's prior femoral neck fracture deformity is again noted, unchanged from prior study. Severe diffuse osteopenia. No other definite fracture or dislocation. Joints:Joint spaces are well-preserved. Soft tissue: Normal Other: Nonspecific bowel gas pattern overlays the osseous structures.. IMPRESSION: Proximal right femur fracture as above. Post traumatic deformity from prior femoral neck fracture as seen on prior exam.
[2016-07-21] MEDS ORDERED: PUMP TUBING ONE (08:49)
[2016-07-21] MEDS: SUCRALFATE 1 G TABLET PO SCH ×3 (08:53→17:41)
[2016-07-21] MEDS: SODIUM CHLORIDE 0.9% 1,000 ML IV SCH ×2 (08:53→19:20)
[2016-07-21] MEDS ORDERED: ONDANSETRON 4 MG/2ML 2 ML VIAL IV PRN (08:57)
[2016-07-21] MEDS ORDERED: HYDROMORPHONE HCL 1 MG/ML SYRINGE ONE ×2 (08:58→16:22)
[2016-07-21] MEDS: HYDROMORPHONE HCL 1 MG/ML SYRINGE IV PRN ×3 (08:59→16:26)
[2016-07-21] MEDS ORDERED: HYDROMORPHONE HCL 2 MG/ML SYRINGE IV PRN ×2 (09:32→18:24)
--- NOTE | 2016-07-21 09:39 | HP ---
ASHLEY HOROWITZ : 1935 [id number] DATE OF ADMISSION: July 21, 2016 CHIEF COMPLAINT: Fall with right hip pain, concern for fracture. HISTORY OF PRESENT ILLNESS: History is obtained from the chart and discussion with the emergency room provider as the patient is Salvadorean speaking and a half backer is not immediately available nor is family present at this time. She was brought to the emergency room by her daughter whom she lives with yesterday after falling from her wheelchair and striking her right hip and shoulder. She had acute complaint of right hip pain and shoulder pain. She apparently is essentially wheelchair bound from a remote nonsurgically healed fracture of the right femur, but I have no report of when that was. On admission to the emergency room, x-rays were obtained and it was found that she had a fracture of her right hip. She is therefore being admitted for pain management and surgical consultation for possible surgical correction. She does have a number of comorbidities but no acute complaints other than the fall with pain are mentioned. Patient is currently stating that she does have pain in the right hip and confirming that she is Salvadorean and speaks Salvadorean and does speak a secondary language. REVIEW OF SYSTEMS: As per History of Present Illness otherwise unobtainable. PAST MEDICAL AND PAST SURGICAL HISTORY: 1. Chronic obstructive pulmonary disease with chronic respiratory failure requiring one to two liters of nasal cannula oxygen with history of frequent admissions for chronic obstructive pulmonary disease exacerbation and hypercapnic respiratory failure. 2. Asthma. 3. Chronic prednisone use. 4. Essential hypertension. 5. Osteoporosis. 6. Paroxysmal atrial fibrillation. 7. Chronic diastolic heart failure with an ejection fraction of 55 to 60% in July of 2015. 8. Tricuspid regurgitation. 9. Nonambulatory status due to prior femur fracture not surgically addressed. 10. Gastroesophageal reflux disease. 11. Open cholecystectomy. 12. Bilateral cataract surgeries. 13. Pulmonary hypertension. ALLERGIES: 1. LOVENOX NOTED TO CAUSE THROMBOCYTOPENIA IN THE PAST NOT OTHERWISE SPECIFIED. 2. INTOLERANCE TO HYDROCODONE FOR ALTERED MENTAL STATUS. CURRENT HOME MEDICATIONS: 1. Verapamil 360 mg extended release once daily. 2. Sucralfate 1 g before meals and at bedtime. 3. Zoloft 25 mg daily. 4. Prednisone 10 mg orally daily. 5. Lisinopril 20 mg daily. 6. Imdur sustained release 30 mg twice daily. 7. Lasix 20 mg twice daily. 8. Colace 100 mg daily. 9. Albuterol sulfate nebulizer every four hours as needed for wheezing. 10. Enteric coated aspirin 81 mg daily. FAMILY HISTORY: Unknown. SOCIAL HISTORY: Again, she lives with and is cared for by her daughter who is not currently present. There is no mention in the chart of tobacco although patient does have chronic obstructive pulmonary disease as discussed above. PHYSICAL EXAM: VITAL SIGNS: Temperature 97.9, pulse rate 92, blood pressure 109/72, respiratory rate 18, oxygen saturation 99% on two liters nasal cannula. GENERAL: This is a well-developed, well-nourished elderly female lying bed in no apparent distress although she does identify pain in her right hip. HEENT: Normocephalic, atraumatic. Extraocular movements are intact. Eyes, pupils equal, round and reactive to light and accommodation. CARDIOVASCULAR: Regular with 3/6 systolic ejection fraction murmur. PULMONARY: Diminished breath sounds throughout. No wheezes, rhonchi or crackles. ABDOMEN: Soft, nontender, nondistended. Normal active bowel sounds. EXTREMITIES: Left extremity is unremarkable. Right extremity is flexed and slightly externally rotated with bruising and swelling of the right hip and upper thigh. Patient has palpable pulses with good capillary refill and intact sensation. ASSESSMENT AND PLAN: 1. Acute right hip fracture secondary to fall. At this time we are concentrating on pain management and supportive care while we await orthopedic consultation for possible surgical repair. Patient's perioperative period will need to be closely monitored for complication of her pre-existing advanced chronic obstructive pulmonary disease as well has heart disease. 2. Chronic hypoxic respiratory failure with reported chronic obstructive pulmonary disease asthma. We will continue current home medications including nebulizers and monitor closely for any signs of exacerbation. 3. Chronic steroid use. We will 10 mg of prednisone. If patient shows signs of adrenal insufficiency given the situation, we will bump her steroids and change them to IV. 4. Coronary artery disease. We will continue her long-acting nitroglycerin and monitor her. 5. Essential hypertension. 6. Gastroesophageal reflux disease. 7. FULL CODE. DISPOSITION: Unclear at this time.
[2016-07-21] MEDS: VERAPAMIL HCL 180 MG PO SCH (12:12)
[2016-07-21] MEDS: ASPIRIN (ENTERIC COATED) 81 MG TABLET.EC PO SCH (12:12)
[2016-07-21] MEDS: PREDNISONE 10 MG TABLET PO SCH (12:12)
[2016-07-21] MEDS: ISOSORBIDE MONONITRATE 30 MG TAB.SR PO SCH (12:12)
[2016-07-21] MEDS: SERTRALINE HCL 50 MG TABLET PO SCH (12:12)
[2016-07-21] MEDS: PANTOPRAZOLE 40 MG TABLET DR PO SCH (12:12)
[2016-07-21] MEDS: DOCUSATE SODIUM 100 MG CAPSULE PO SCH (12:12)
--- NOTE | 2016-07-21 14:22 | CONS ---
Sarah HOROWITZ : 1935 [id number] DATE OF SERVICE: July 21, 2016 CHIEF COMPLAINT: Right hip injury. HISTORY OF PRESENT ILLNESS: This is a non-ambulatory wheelchair bound the patient who fell from her wheelchair the night prior to her admission and sustained an acute injury to her right hip. She was brought in to the emergency department where evaluation demonstrated pain localized to the right hip. She had x-rays, which show both a prior displaced right femoral neck fracture and now a subtrochanteric fracture with displacement in addition. The patient has no family at the bedside. She complains of isolated pain at the right as well as some right shoulder pain. No other specific complaints. She is a primary Mosotho speaker and is having difficulty communicating even with the use of a labour market economist. PAST MEDICAL HISTORY: Is significant for, according to the ED note, for: 1. Congestive heart failure. 2. Gastritis. 3. End-stage chronic obstructive pulmonary disease. 4. Hypertension. 5. And again this right femoral neck fracture not repaired that is demonstrated on images as old as seven years ago. PAST SURGICAL HISTORY: Is noncontributory to this patient's complaints. CURRENT MEDICATIONS: As reported in the hospitalist H&P. ALLERGIES TO MEDICATIONS: As reported in the hospitalist H&P. REVIEW OF SYSTEMS: As per the hospitalist H&P. PHYSICAL EXAM: Patient is a well-developed, well-nourished female in no acute distress. She is seen lying in her bed on the floor. EXTREMITY EXAMINATION: She has no open injuries. She has any pain with motion of the right hip. She is shortened and externally rotated. She has a warm and well perfused extremity distally with intact pulses. She is difficult to communicate with and appears to be confused even with the use of an associate store manager. She is complaining of pain isolated to her right hip. She has tenderness to palpation at this site as well and no ability to follow instructions for neurological exam distally. RADIOGRAPHS: Again, review of her x-rays today, an AP pelvis demonstrates a sclerotic margin on a displaced femoral neck fracture and now what appears to be an acute subtrochanteric fracture. She has got incredibly low bone density and comminution at the fracture site. ASSESSMENT: This is an 80-year-old nonambulatory patient who has at least seven years of a displaced untreated right femoral neck fracture and now has a subtrochanteric fracture from a fall out of her wheelchair. PLAN: The plan will be to mobilize the patient bed to chair, continue with nonweightbearing on this side utilizing a wheelchair for mobility and assistance for transfers. The potential for medical comorbidities and perioperative complications is extremely high in this very unhealthy patient and there is no clear benefit to trying to address this fracture as it would not lead to a significant change in her mobility status. We will continue to follow the patient as needed during her inpatient stay but recommend no surgical interventions at this time. Job [id number] Cc: [facility]
[2016-07-21] MEDS ORDERED: HYDROMORPHONE HCL 1 MG/ML SYRINGE IV PRN (18:37)
[2016-07-21] MEDS: HYDROMORPHONE HCL 0.5 MG/0.5 ML SYRINGE IV PRN (20:45)
[2016-07-22] MEDS: ISOSORBIDE MONONITRATE 30 MG TAB.SR PO SCH ×3 (00:34→20:19)
[2016-07-22] MEDS: CELECOXIB 100 MG CAPSULE PO SCH ×2 (00:35→09:19)
[2016-07-22] MEDS: DOCUSATE SODIUM 100 MG CAPSULE PO SCH ×3 (00:35→20:19)
[2016-07-22] MEDS: SUCRALFATE 1 G TABLET PO SCH ×5 (00:35→23:55)
[2016-07-22] MEDS: SODIUM CHLORIDE 0.9% 1,000 ML IV SCH (05:19)
[2016-07-22] MEDS: HYDROMORPHONE HCL 0.5 MG/0.5 ML SYRINGE IV PRN (05:30)
[2016-07-22 05:50] LABS: ABSOLUTE NEUTROPHIL COUNT 10.3 K/mm3 (1.8-7.7); BASO % 0.3 % (0.2-1.0); EOS # 0.1 (0.0-0.5); EOS % 0.5 % (0.9-2.9); HEMOGLOBIN 9.3 gm/l (12.0-16.0); IMM NEUT # 0.1 K/mm3 (0-0.2); IMM NEUT% 0.4 % (0-1); LYMPH # 0.4 (1.0-4.8); LYMPH % 3.4 % (15-45); MEAN CORPUSCULAR HEMOGLOBIN 31.3 pg (27.0-31.0); MEAN PLATELET VOLUME 10.9 fl (7.4-10.4); MONO # 0.9 (0.0-0.8); MONO % 7.9 % (4-12); NEUT % 87.5 % (43-75); PLATELET COUNT 113 K/mm3 (130-400); RED CELL DISTRIBUTION WIDTH 13.4 % (11.5-14.5)
[2016-07-22 06:17] LABS: CALCIUM 8.6 mg/dL (8.6-10.3); MAGNESIUM 1.7 mg/dL (1.9-2.7)
[2016-07-22] MEDS: SERTRALINE HCL 50 MG TABLET PO SCH (09:18)
[2016-07-22] MEDS: PANTOPRAZOLE 40 MG TABLET DR PO SCH (09:19)
[2016-07-22] MEDS: ASPIRIN (ENTERIC COATED) 81 MG TABLET.EC PO SCH (09:19)
[2016-07-22] MEDS: VERAPAMIL HCL 180 MG PO SCH (09:19)
[2016-07-22] MEDS: TRAMADOL HCL 50 MG TABLET PO PRN ×3 (09:20→20:19)
[2016-07-22] MEDS: PREDNISONE 10 MG TABLET PO SCH (09:20)
[2016-07-22] MEDS ORDERED: FUROSEMIDE 20 MG/2 ML VIAL ONE (10:05)
[2016-07-22] MEDS ORDERED: FUROSEMIDE 20 MG/2 ML VIAL IV ONE (10:06)
--- NOTE | 2016-07-22 10:11 | PDOC43 ---
- Subjective Chief Complaint: Right hip pain Still c/o a lot of right hip pain, denies chest pain but does have dyspnea. - Objective Vital Signs Temperature 99.3 F 07/22/16 07:03 Pulse Rate 108 07/22/16 07:03 Respiratory Rate 16 07/22/16 07:03 Blood Pressure 118/71 07/22/16 07:03 O2 Saturation by Pulse Oximetry 96 07/22/16 07:03 Oxygen Delivery Method Nasal Cannula Oxygen Flow Rate 1 Intake and Output 07/21/16 07/22/16 07/23/16 06:59 06:59 06:59 Intake Total 1990 Output Total 775 Balance 1216 General: Alert, No Acute Distress HEENT: Mucous membr. moist/pink Lungs: Diminished at Bases (no crackles or wheezes) Cardiovascular: Regular Rate and Rhythm Abdomen: Soft, Normal Bowel Sounds, No Tenderness, No Masses Extremities: Normal Pulses, No Edema Skin: Normal Color Neurological: Normal Speech Laboratory 07/22/16 05:30 07/22/16 05:30 07/22/16 05:30 RBC 2.97 L MCV 101.0 H MCH 31.3 H MCHC 31.0 L BUN 29 H Estimated GFR 80 H Magnesium 1.7 L Current Medications: Current meds reviewed in EMR. - Problems: Assessment/Plan (1) Closed right hip fracture Qualifiers: Encounter type: initial encounter Qualifier Code: (S72.001A) Fracture of unspecified part of neck of right femur, initial encounter for closed fracture Status: AcuteAssessment/Plan: Acute inter-trocanteric right femur fracture and chronic right femoral neck fracture. Not a candidate for surgical repair. Attempt to stabilize on oral pain med and work with PT on mobility. Will x-ray left to r/o fracture. (2) CAD (coronary artery disease) Qualifiers: Coronary Disease-Associated Artery/Lesion type: [place] artery [place] vs. transplanted heart: [place] heart Associated angina: with stable angina Qualifier Code: (I25.118) Atherosclerotic heart disease of [place] coronary artery with other forms of angina pectoris Status: ChronicAssessment/Plan: stable (3) HTN (hypertension), benign Status: ChronicAssessment/Plan: stable (4) COPD (chronic obstructive pulmonary disease) with emphysema Qualifiers: Emphysema type: unspecified Qualifier Code: (J43.9) Emphysema, unspecified Status: ChronicAssessment/Plan: With chronic O2 and steroid dependent hypercapnic and hypoxemic respiratory failure. Exacerbated this a.m. by fluid overload. (5) Diastolic CHF Qualifiers: Congestive heart failure chronicity: acute on chronic Qualifier Code: ( I50.33) Acute on chronic diastolic (congestive) heart failure Status: ChronicAssessment/Plan: Exacerbated by IV fluids, diurese. (6) Hyponatremia Status: AcuteAssessment/Plan: Present on admit, resolved. (7) Anemia Status: AcuteAssessment/Plan: Due to IV fluid dilution (8) Obesity (BMI 30.0-34.9) Status: ChronicAssessment/Plan: Complicates care of chronic respiratory failure, chronic CHF, and mobility in setting of acute and chronic right femur fractures. VTE Prophylaxis: mechanical Disposition: May be appropriate for SNF rehab but family will likely take her home.
--- NOTE | 2016-07-22 12:10 | RAD ---
CHEST-AP BEDSIDE COMPARISON: Chest one view, 05/21/2016 HISTORY: Low oxygen saturation. FINDINGS: Views: Frontal chest. Lungs: Low volumes and poor inspiration, unchanged. Transverse linear opacity in the left lung base, unchanged. Heart and vessels: Normal Trachea and bronchi: Normal Mediastinum and helga: Normal Costophrenic sulci: Normal Chest wall and bones: No acute finding. Degenerative changes of both shoulders. Neck base: Dense vascular calcification on the left. Upper abdomen: Normal. IMPRESSION: No acute finding. Low lung volumes with some subsegmental atelectasis in the left lung base.
--- NOTE | 2016-07-22 13:00 | RAD ---
HIP LEFT 2 VIEWS PORTABLE COMPARISON: Right hip and pelvis, 07/21/2016. HISTORY: Continued left hip pain. Check for fracture. The patient has a right femur fracture. FINDINGS: Views: Left hip AP and frog-leg lateral Bones: Decreased mineralization. No fracture. Joints: Normal Soft tissues: Normal IMPRESSION: No fracture seen. Osteoporosis.
[2016-07-23] MEDS: TRAMADOL HCL 50 MG TABLET PO PRN ×4 (01:16→22:40)
[2016-07-23 03:22] LABS: URINE APPEARANCE HAZY; URINE BILIRUBIN NEGATIVE (NEGATIVE); URINE BLOOD 4+ (NEGATIVE); URINE COLOR YELLOW; URINE GLUCOSE (UA) NEGATIVE (NEGATIVE); URINE LEUKOCYTE ESTERASE 2+ (NEGATIVE); URINE NITRITE NEGATIVE (NEGATIVE); URINE PROTEIN 2+ (NEGATIVE); URINE UROBILINOGEN NORMAL (0-1 mg/dl)
[2016-07-23 03:23] LABS: URINE AMORPHOUS SEDIMENT 1+; URINE BACTERIA 2+; URINE EPITHELIAL CELLS FEW /hpf
[2016-07-23] MEDS ORDERED: SODIUM CHLORIDE 0.9% 250 ML IV SCH (03:30)
[2016-07-23 06:06] LABS: HEMATOCRIT 27.3 % (37.0-47.0); HEMOGLOBIN 8.4 gm/l (12.0-16.0); MEAN CORPUSCULAR HEMOGLOBIN 30.8 pg (27.0-31.0); MEAN CORPUSCULAR HGB CONC 30.8 g/dl (33.0-37.0); RED CELL DISTRIBUTION WIDTH 13.5 % (11.5-14.5)
[2016-07-23] MEDS: SUCRALFATE 1 G TABLET PO SCH ×5 (07:32→23:16)
[2016-07-23] MEDS: VERAPAMIL HCL 180 MG PO SCH (09:19)
[2016-07-23] MEDS: ISOSORBIDE MONONITRATE 30 MG TAB.SR PO SCH ×2 (09:20→20:28)
[2016-07-23] MEDS: DOCUSATE SODIUM 100 MG CAPSULE PO SCH ×2 (09:20→23:17)
[2016-07-23] MEDS: PREDNISONE 10 MG TABLET PO SCH (09:20)
[2016-07-23] MEDS: SERTRALINE HCL 50 MG TABLET PO SCH (09:20)
[2016-07-23] MEDS: ASPIRIN (ENTERIC COATED) 81 MG TABLET.EC PO SCH (09:20)
[2016-07-23] MEDS: PANTOPRAZOLE 40 MG TABLET DR PO SCH (09:20)
[2016-07-23] MEDS: CELECOXIB 100 MG CAPSULE PO SCH (09:20)
[2016-07-23] MEDS: ALBUTEROL NEB 2.5 MG/3 ML VIAL.NEB NEB SCH ×4 (09:55→19:24)
--- NOTE | 2016-07-23 10:06 | PDOC43 ---
- Subjective Chief Complaint: Right hip pain Somnolent and hypoxemic this a.m. Had low urine output overnight and positive U /A. - Objective Vital Signs Temperature 97.4 F 07/23/16 07:13 Pulse Rate 99 07/23/16 07:47 Respiratory Rate 20 07/23/16 07:13 Blood Pressure 98/50 07/23/16 07:13 O2 Saturation by Pulse Oximetry 80 07/23/16 07:47 Oxygen Delivery Method Room Air Oxygen Flow Rate 0 Intake and Output 07/22/16 07/23/16 07/24/16 06:59 06:59 06:59 Intake Total 1990 910 Output Total 775 1075 Balance 1216 -165 General: Moderate Distress, No Alert, No Cooperative Lungs: Other (very poor air movement, respirations appear almost agonal) Cardiovascular: Regular Rate and Rhythm Abdomen: Soft, Normal Bowel Sounds, No Tenderness, No Masses Extremities: Pulses Diminished but Palpable, No Edema Skin: Normal Color Laboratory 07/23/16 05:30 07/23/16 05:30 RBC 2.73 L MCV 100.0 H MCHC 30.8 L Current Medications: Current meds reviewed in EMR. - Problems: Assessment/Plan (1) Closed right hip fracture Qualifiers: Encounter type: initial encounter Qualifier Code: (S72.001A) Fracture of unspecified part of neck of right femur, initial encounter for closed fracture Status: AcuteAssessment/Plan: Acute inter-trocanteric right femur fracture and chronic right femoral neck fracture. Not a candidate for surgical repair. Attempt to stabilize on oral pain med and work with PT on mobility. x-ray negative for fracture on left (2) CAD (coronary artery disease) Qualifiers: Coronary Disease-Associated Artery/Lesion type: [place] artery [place] vs. transplanted heart: [place] heart Associated angina: with stable angina Qualifier Code: (I25.118) Atherosclerotic heart disease of [place] coronary artery with other forms of angina pectoris Status: ChronicAssessment/Plan: check troponin (3) HTN (hypertension), benign Status: ChronicAssessment/Plan: BP low, hold meds (4) COPD (chronic obstructive pulmonary disease) with emphysema Qualifiers: Emphysema type: unspecified Qualifier Code: (J43.9) Emphysema, unspecified Status: ChronicAssessment/Plan: With chronic O2 and steroid dependent hypercapnic and hypoxemic respiratory failure. Exacerbated this a.m., check labs and transfer to [facility], start BiPAP. Differential includes PE, ACS, aspiration, COPD exacerbation. (5) Diastolic CHF Qualifiers: Congestive heart failure chronicity: acute on chronic Qualifier Code: ( I50.33) Acute on chronic diastolic (congestive) heart failure Status: ChronicAssessment/Plan: Thought to be in exacerbation yesterday but now appears dry with low urine output. (6) Hyponatremia Status: AcuteAssessment/Plan: Present on admit, resolved. (7) Anemia Status: AcuteAssessment/Plan: Due to IV fluid dilution, worse today, may have bleeding into fracture sight, consider transfusion. (8) Obesity (BMI 30.0-34.9) Status: ChronicAssessment/Plan: Complicates care of chronic respiratory failure, chronic CHF, and mobility in setting of acute and chronic right femur fractures. VTE Prophylaxis: mechanical Disposition: moving to [facility] for BiPAP
[2016-07-23] MEDS ORDERED: PUMP TUBING ONE (10:12)
[2016-07-23] MEDS: CLINDAMYCIN 600 MG PREMIX 600 MG in Premix (D5W) 50 ml 1 EACH IV SCH ×3 (10:33→21:47)
[2016-07-23 10:34] LABS: ARTERIAL BLOOD GAS BASE EXCESS 0.5 mmol/L (-2.0-2.0); ARTERIAL BLOOD GAS PCO2 62.2 mmHg (35.0-45.0); ARTERIAL BLOOD GAS PO2 73.5 mmHg (80.0-90.0); ARTERIAL BLOOD GAS pH 7.272 (7.350-7.450)
--- NOTE | 2016-07-23 10:50 | RAD ---
CHEST-AP BEDSIDE COMPARISON: Chest one view, 07/22/2016 HISTORY: Respiratory failure. Possible aspiration pneumonia. FINDINGS: Views: Frontal chest. Lungs: For aspiration. Low lung volumes. Decreased opacity in the left lung base. Heart and vessels: No change. Atherosclerosis of the aorta. Trachea and bronchi: Normal Mediastinum and helga: Normal Costophrenic sulci: Normal Chest wall and bones: No change. Upper abdomen: Normal. IMPRESSION: Decreased opacity in the left lung base, improvement in atelectasis or infiltrate.
[2016-07-23] MEDS ORDERED: LEVOFLOXACIN 750 MG/D5W 150 ML 750 MG in Premix (D5W) 150 ml Bag 1 EACH IV SCH (11:00)
[2016-07-23] MEDS ORDERED: IV START KIT ONE (12:02)
[2016-07-23 12:36] LABS: CALCIUM 8.4 mg/dL (8.6-10.3)
[2016-07-23] MEDS: ACETAMINOPHEN 325 MG TABLET PO PRN ×2 (17:06→22:40)
[2016-07-23] MEDS ORDERED: SODIUM CHLORIDE 0.9% 1,000 ML IV SCH (17:23)
[2016-07-24] MEDS: CLINDAMYCIN 600 MG PREMIX 600 MG in Premix (D5W) 50 ml 1 EACH IV SCH ×5 (03:43→23:23)
[2016-07-24] MEDS: TRAMADOL HCL 50 MG TABLET PO PRN ×3 (04:31→18:53)
[2016-07-24] MEDS: ACETAMINOPHEN 325 MG TABLET PO PRN ×3 (04:32→18:52)
[2016-07-24 05:49] LABS: ABSOLUTE NEUTROPHIL COUNT 6.6 K/mm3 (1.8-7.7); BASO % 0.2 % (0.2-1.0); EOS # 0.1 (0.0-0.5); EOS % 1.2 % (0.9-2.9); HEMATOCRIT 23.6 % (37.0-47.0); HEMOGLOBIN 7.6 gm/l (12.0-16.0); IMM NEUT% 0.4 % (0-1); LYMPH # 0.4 (1.0-4.8); LYMPH % 5.3 % (15-45); MEAN CELL VOLUME 98.3 fl (81.0-99.0); MEAN CORPUSCULAR HEMOGLOBIN 31.7 pg (27.0-31.0); MEAN CORPUSCULAR HGB CONC 32.2 g/dl (33.0-37.0); MEAN PLATELET VOLUME 10.9 fl (7.4-10.4); MONO # 0.9 (0.0-0.8); MONO % 11.5 % (4-12); NEUT % 81.4 % (43-75); PLATELET COUNT 104 K/mm3 (130-400); RED CELL DISTRIBUTION WIDTH 13.5 % (11.5-14.5)
[2016-07-24 05:58] LABS: ALB/GLOB RATIO 1.3 (>1.0); ALBUMIN 2.9 gm/dL (3.5-5.7); CALCIUM 8.3 mg/dL (8.6-10.3)
[2016-07-24] MEDS: ALBUTEROL NEB 2.5 MG/3 ML VIAL.NEB NEB SCH ×4 (07:11→20:05)
[2016-07-24] MEDS ORDERED: PUMP TUBING ONE (08:58)
[2016-07-24] MEDS: SUCRALFATE 1 G TABLET PO SCH ×4 (09:02→21:25)
[2016-07-24] MEDS: SERTRALINE HCL 50 MG TABLET PO SCH (09:03)
[2016-07-24] MEDS: ASPIRIN (ENTERIC COATED) 81 MG TABLET.EC PO SCH (09:03)
[2016-07-24] MEDS: CELECOXIB 100 MG CAPSULE PO SCH (09:03)
[2016-07-24] MEDS: ISOSORBIDE MONONITRATE 30 MG TAB.SR PO SCH ×2 (09:03→21:26)
[2016-07-24] MEDS: DOCUSATE SODIUM 100 MG CAPSULE PO SCH ×2 (09:03→21:25)
[2016-07-24] MEDS: PANTOPRAZOLE 40 MG TABLET DR PO SCH (09:03)
[2016-07-24] MEDS: PREDNISONE 10 MG TABLET PO SCH (09:04)
[2016-07-24] MEDS: VERAPAMIL HCL 180 MG PO SCH (09:04)
[2016-07-24] MEDS ORDERED: CELECOXIB 100 MG CAPSULE PO SCH (10:34)
[2016-07-24] MEDS ORDERED: SODIUM CHLORIDE 0.9% 500 ML IV PRN (10:45)
--- NOTE | 2016-07-24 10:45 | PDOC43 ---
- Subjective Chief Complaint: Right hip pain Required BiPAP for acute hypercapnic respiratory failure and found to have LLL pneumonia yesterday. Reports dyspnea is less today, main c/o is right hip pain. - Objective Vital Signs Temperature 98.4 F 07/23/16 20:00 Pulse Rate 103 07/24/16 07:11 Respiratory Rate 18 07/24/16 07:31 Blood Pressure 138/88 07/24/16 04:00 O2 Saturation by Pulse Oximetry 95 07/24/16 07:11 Oxygen Delivery Method Nasal Cannula Oxygen Flow Rate 1.5 Intake and Output 07/23/16 07/24/16 07/25/16 06:59 06:59 06:59 Intake Total 910 1655 Output Total 1075 691 Balance -165 964 General: Alert, Cooperative, Moderate Distress, No Oriented x3 HEENT: Other (lips dry) Lungs: Clear to Auscultation Bilaterally, Diminished at Bases Cardiovascular: Regular Rate and Rhythm, No Murmur Abdomen: Soft, Normal Bowel Sounds, No Tenderness, No Masses Extremities: Pulses Diminished but Palpable, No Edema Laboratory 07/24/16 05:15 07/24/16 05:15 07/24/16 07/23/16 07/23/16 05:15 16:05 09:55 RBC 2.40 L MCH 31.7 H MCHC 32.2 L pCO2 62.2 H pO2 73.5 L ABG pH 7.272 L BUN 45 H Estimated GFR 43 L Calcium 8.3 L Troponin I 0.07 H Total Protein 5.2 L Albumin 2.9 L 07/23/16 05:30 RBC MCH MCHC pCO2 pO2 ABG pH BUN 42 H Estimated GFR 36 L Calcium 8.4 L Troponin I Total Protein Albumin Current Medications: Current meds reviewed in EMR. - Problems: Assessment/Plan (1) Closed right hip fracture Qualifiers: Encounter type: initial encounter Qualifier Code: (S72.001A) Fracture of unspecified part of neck of right femur, initial encounter for closed fracture Status: AcuteAssessment/Plan: Acute inter-trocanteric right femur fracture and chronic right femoral neck fracture. Not a candidate for surgical repair. Attempt to stabilize on oral pain med and work with PT on mobility. x-ray negative for fracture on left (2) CAD (coronary artery disease) Qualifiers: Coronary Disease-Associated Artery/Lesion type: [place] artery [place] vs. transplanted heart: [place] heart Associated angina: with stable angina Qualifier Code: (I25.118) Atherosclerotic heart disease of [place] coronary artery with other forms of angina pectoris Status: ChronicAssessment/Plan: Troponin borderline due to stress of acute illness, no ACS. (3) HTN (hypertension), benign Status: ChronicAssessment/Plan: Stable (4) COPD (chronic obstructive pulmonary disease) with emphysema Qualifiers: Emphysema type: unspecified Qualifier Code: (J43.9) Emphysema, unspecified Status: ChronicAssessment/Plan: With chronic O2 and steroid dependent hypercapnic and hypoxemic respiratory failure. Appears to be at her baseline today. (5) Diastolic CHF Qualifiers: Congestive heart failure chronicity: acute on chronic Qualifier Code: ( I50.33) Acute on chronic diastolic (congestive) heart failure Status: ChronicAssessment/Plan: Thought to be in exacerbation 07/22, but required increased fluids on 07/23, follow closely. (6) Hyponatremia Status: AcuteAssessment/Plan: Present on admit, resolved. (7) Anemia Status: AcuteAssessment/Plan: Due to IV fluid dilution, worse today, may have bleeding into fracture sight, transfuse 2 units PRBC. (8) Obesity (BMI 30.0-34.9) Status: ChronicAssessment/Plan: Complicates care of chronic respiratory failure, chronic CHF, and mobility in setting of acute and chronic right femur fractures. (9) DION (acute kidney injury) Status: AcuteAssessment/Plan: Due to dehydration, pneumonia, UTI. Continue gentle hydration and follow, avoid CHF exacerbation. (10) Pneumonia Qualifiers: Laterality: left Lung location: lower lobe of lung Status: Acute Assessment/Plan: Found on CXR in setting of acute respiratory failure. Presumed bacterial, treated with levofloxacin and clindamycin for possible aspiration. (11) UTI (urinary tract infection) Status: AcuteAssessment/Plan: Presumed bacterial, Covered with levofloxacin, culture pending. VTE Prophylaxis: mechanical Disposition: remain in [facility] with BiPAP available today, home with family in 2-4 days anticipated.
[2016-07-24] MEDS ORDERED: ALBUTEROL/IPRATROPIUM 2.5/0.5 MG 3 ML/EACH DOSE ONE (11:30)
[2016-07-24] MEDS ORDERED: BLOOD Y PLUMSET W/CASSETTE ONE ×2 (12:38→16:06)
[2016-07-25] MEDS ORDERED: ALBUTEROL NEB 2.5 MG/3 ML VIAL.NEB NEB PRN (01:15)
[2016-07-25] MEDS ORDERED: FUROSEMIDE 20 MG/2 ML VIAL IV ONE (01:16)
[2016-07-25] MEDS: CLINDAMYCIN 600 MG PREMIX 600 MG in Premix (D5W) 50 ml 1 EACH IV SCH (05:26)
[2016-07-25 06:01] LABS: ABSOLUTE NEUTROPHIL COUNT 7.4 K/mm3 (1.8-7.7); BASO % 0.3 % (0.2-1.0); EOS # 0.1 (0.0-0.5); EOS % 1.4 % (0.9-2.9); HEMATOCRIT 30.1 % (37.0-47.0); IMM NEUT% 0.2 % (0-1); LYMPH # 0.4 (1.0-4.8); LYMPH % 4.2 % (15-45); MEAN CELL VOLUME 93.5 fl (81.0-99.0); MEAN CORPUSCULAR HEMOGLOBIN 31.1 pg (27.0-31.0); MEAN CORPUSCULAR HGB CONC 33.2 g/dl (33.0-37.0); MEAN PLATELET VOLUME 10.5 fl (7.4-10.4); MONO # 0.8 (0.0-0.8); MONO % 8.7 % (4-12); NEUT % 85.2 % (43-75); PLATELET COUNT 128 K/mm3 (130-400); RED CELL DISTRIBUTION WIDTH 15.6 % (11.5-14.5)
[2016-07-25 06:31] LABS: CALCIUM 8.6 mg/dL (8.6-10.3); MAGNESIUM 1.9 mg/dL (1.9-2.7)
[2016-07-25] MEDS: SUCRALFATE 1 G TABLET PO SCH ×4 (07:34→21:06)
[2016-07-25] MEDS: TRAMADOL HCL 50 MG TABLET PO PRN ×3 (07:43→21:06)
[2016-07-25] MEDS: ALBUTEROL NEB 2.5 MG/3 ML VIAL.NEB NEB SCH ×4 (08:17→20:41)
--- NOTE | 2016-07-25 08:58 | PDOC43 ---
- Subjective Chief Complaint: Right hip pain Awake and alert, moaning - Objective Vital Signs Temperature 98.1 F 07/25/16 07:36 Pulse Rate 98 07/25/16 07:36 Respiratory Rate 28 07/25/16 07:36 Blood Pressure 154/93 07/25/16 07:36 O2 Saturation by Pulse Oximetry 91 07/25/16 07:59 Oxygen Delivery Method Nasal Cannula Oxygen Flow Rate 0.5 Intake and Output 07/24/16 07/25/16 07/26/16 06:59 06:59 06:59 Intake Total 1655 2350 Output Total 691 1925 Balance 964 425 General: Alert, Cooperative, Mild Distress HEENT: Mucous membr. moist/pink Lungs: Diminished at Bases Cardiovascular: Regular Rate and Rhythm Abdomen: Soft, Normal Bowel Sounds, No Tenderness, No Masses Extremities: Normal Pulses, No Edema Laboratory 07/25/16 05:14 07/25/16 05:14 07/25/16 07/24/16 05:14 10:55 RBC 3.22 L MCH 31.1 H RDW 15.6 H BUN 37 H Crossmatch See Detail Current Medications: Current meds reviewed in EMR. - Problems: Assessment/Plan (1) Closed right hip fracture Qualifiers: Encounter type: initial encounter Qualifier Code: (S72.001A) Fracture of unspecified part of neck of right femur, initial encounter for closed fracture Status: AcuteAssessment/Plan: Acute inter-trocanteric right femur fracture and chronic right femoral neck fracture. Not a candidate for surgical repair. Attempt to stabilize on oral pain med and work with PT on mobility. x-ray negative for fracture on left (2) CAD (coronary artery disease) Qualifiers: Coronary Disease-Associated Artery/Lesion type: [place] artery [place] vs. transplanted heart: [place] heart Associated angina: with stable angina Qualifier Code: (I25.118) Atherosclerotic heart disease of [place] coronary artery with other forms of angina pectoris Status: ChronicAssessment/Plan: Troponin borderline due to stress of acute illness, no ACS. (3) HTN (hypertension), benign Status: ChronicAssessment/Plan: Stable (4) COPD (chronic obstructive pulmonary disease) with emphysema Qualifiers: Emphysema type: unspecified Qualifier Code: (J43.9) Emphysema, unspecified Status: ChronicAssessment/Plan: With chronic O2 and steroid dependent hypercapnic and hypoxemic respiratory failure. Appears to be at her baseline today. (5) Diastolic CHF Qualifiers: Congestive heart failure chronicity: acute on chronic Qualifier Code: ( I50.33) Acute on chronic diastolic (congestive) heart failure Status: ChronicAssessment/Plan: Thought to be in exacerbation 07/22, but required increased fluids on 07/23, follow closely. (6) Hyponatremia Status: AcuteAssessment/Plan: Present on admit, resolved. (7) Anemia Status: AcuteAssessment/Plan: Presumed due to bleeding into fracture site, improved post two units transfusion on 07/24. (8) Obesity (BMI 30.0-34.9) Status: ChronicAssessment/Plan: Complicates care of chronic respiratory failure, chronic CHF, and mobility in setting of acute and chronic right femur fractures. (9) DION (acute kidney injury) Status: AcuteAssessment/Plan: Due to dehydration, pneumonia, UTI. Continue gentle hydration and follow, avoid CHF exacerbation. Improving with creatinine approaching baseline (10) Pneumonia Qualifiers: Laterality: left Lung location: lower lobe of lung Status: Acute Assessment/Plan: Found on CXR in setting of acute respiratory failure. Presumed bacterial, treated with levofloxacin and clindamycin for possible aspiration. Improved, transition to oral abx. (11) UTI (urinary tract infection) Qualifiers: Urinary tract infection type: acute cystitis Status: AcuteAssessment/Plan : With E. coli. Covered with levofloxacin, culture pending. VTE Prophylaxis: mechanical Disposition: transfer to med/surg
[2016-07-25] MEDS: ACETAMINOPHEN 325 MG TABLET PO PRN ×2 (09:47→18:10)
[2016-07-25] MEDS ORDERED: LEVOFLOXACIN 750 MG TABLET PO SCH (10:15)
[2016-07-25] MEDS: ISOSORBIDE MONONITRATE 30 MG TAB.SR PO SCH ×2 (10:53→21:06)
[2016-07-25] MEDS: DOCUSATE SODIUM 100 MG CAPSULE PO SCH ×2 (10:53→21:01)
[2016-07-25] MEDS: SERTRALINE HCL 50 MG TABLET PO SCH (10:53)
[2016-07-25] MEDS: PANTOPRAZOLE 40 MG TABLET DR PO SCH (10:53)
[2016-07-25] MEDS: CELECOXIB 100 MG CAPSULE PO SCH (10:54)
[2016-07-25] MEDS: PREDNISONE 10 MG TABLET PO SCH (10:54)
[2016-07-25] MEDS: ASPIRIN (ENTERIC COATED) 81 MG TABLET.EC PO SCH (10:54)
[2016-07-25] MEDS: VERAPAMIL HCL 180 MG PO SCH (10:54)
[2016-07-25] MEDS ORDERED: LEVOFLOXACIN 750 MG/D5W 150 ML 750 MG in Premix (D5W) 150 ml Bag 1 EACH IV SCH (11:00)
[2016-07-25] MEDS: CLINDAMYCIN HCL 150 MG CAPSULE PO SCH ×3 (11:02→23:40)
[2016-07-25] MEDS ORDERED: BISACODYL 10 MG SUP PR PRN (15:26)
[2016-07-26] MEDS: TRAMADOL HCL 50 MG TABLET PO PRN ×4 (04:51→21:11)
[2016-07-26] MEDS: CLINDAMYCIN HCL 150 MG CAPSULE PO SCH ×4 (04:52→17:57)
[2016-07-26 05:38] LABS: HEMATOCRIT 29.4 % (37.0-47.0); MEAN CORPUSCULAR HEMOGLOBIN 31.6 pg (27.0-31.0); RED CELL DISTRIBUTION WIDTH 14.6 % (11.5-14.5)
[2016-07-26 06:02] LABS: CALCIUM 8.7 mg/dL (8.6-10.3)
[2016-07-26] MEDS: SUCRALFATE 1 G TABLET PO SCH ×4 (07:56→21:11)
[2016-07-26] MEDS: ALBUTEROL NEB 2.5 MG/3 ML VIAL.NEB NEB SCH ×4 (08:00→19:26)
[2016-07-26] MEDS: SERTRALINE HCL 50 MG TABLET PO SCH (09:21)
[2016-07-26] MEDS: ISOSORBIDE MONONITRATE 30 MG TAB.SR PO SCH ×2 (09:22→21:11)
[2016-07-26] MEDS: CELECOXIB 100 MG CAPSULE PO SCH (09:22)
[2016-07-26] MEDS: ACETAMINOPHEN 325 MG TABLET PO PRN (09:22)
[2016-07-26] MEDS: ASPIRIN (ENTERIC COATED) 81 MG TABLET.EC PO SCH (09:22)
[2016-07-26] MEDS: PANTOPRAZOLE 40 MG TABLET DR PO SCH (09:22)
[2016-07-26] MEDS: DOCUSATE SODIUM 100 MG CAPSULE PO SCH ×2 (09:22→21:11)
[2016-07-26] MEDS: PREDNISONE 10 MG TABLET PO SCH (09:23)
[2016-07-26] MEDS: VERAPAMIL HCL 180 MG PO SCH (09:36)
--- NOTE | 2016-07-26 13:21 | PDOC43 ---
- Subjective Chief Complaint: Right hip pain Patient improved but has pain. She denies abdominal pain, chest pain or shortness of breath. She has agreed to SNIF. Daughters at bedside Subjective: Reports Pain Tolerable, Reports Tolerating Diet Well, Reports Urinating Without Difficulty, Denies Shortness of Breath, Denies Cough, Denies Chest Pain, Denies Abdominal Pain, Denies Nausea - Objective Vital Signs Temperature 98.2 F 07/26/16 11:25 Pulse Rate 89 07/26/16 12:17 Respiratory Rate 26 07/26/16 12:17 Blood Pressure 118/73 07/26/16 11:25 O2 Saturation by Pulse Oximetry 91 07/26/16 12:17 Oxygen Delivery Method Nasal Cannula Oxygen Flow Rate 1 Intake and Output 07/24/16 07/25/16 07/26/16 23:59 23:59 23:59 Intake Total 2810 1575 200 Output Total 867 2325 850 Balance 1943 750 650 General: Alert, Oriented x3, Cooperative, No Acute Distress HEENT: Atraumatic, Mucous membr. moist/pink Lungs: Clear to Auscultation Bilaterally, Normal Air Movement Cardiovascular: Regular Rate and Rhythm, Normal S1, Normal S2 Abdomen: Soft, Mild Distention, No Rigid, No Tenderness, No Rebounding Extremities: Tenderness, No Cyanosis, No Edema Neurological: Normal Speech Psych/Mental Status: Normal Mood Laboratory 07/26/16 05:13 07/26/16 05:13 07/26/16 05:13 RBC 3.16 L MCH 31.6 H RDW 14.6 H Estimated GFR 96 H Current Medications: Current meds reviewed in EMR. - Problems: Assessment/Plan (1) DION (acute kidney injury) Status: AcuteAssessment/Plan: Due to dehydration, pneumonia, UTI. Continue gentle hydration and follow, avoid CHF exacerbation. Improving with creatinine approaching baseline (2) Anemia Qualifiers: Anemia type: unspecified type Qualifier Code: (D64.9) Anemia, unspecified Status: ChronicAssessment/Plan: Presumed due to bleeding into fracture site, improved post two units transfusion on 07/24. Hgb stable (3) Closed right hip fracture Qualifiers: Encounter type: initial encounter Qualifier Code: (S72.001A) Fracture of unspecified part of neck of right femur, initial encounter for closed fracture Status: AcuteAssessment/Plan: Acute inter-trocanteric right femur fracture and chronic right femoral neck fracture. Not a candidate for surgical repair. Attempt to stabilize on oral pain med and work with PT on mobility. x-ray negative for fracture on left (4) Pneumonia Qualifiers: Pneumonia type: aspiration pneumonia Laterality: left Lung location : lower lobe of lung Status: AcuteAssessment/Plan: Found on CXR in setting of acute respiratory failure. Presumed bacterial, treated with levofloxacin and clindamycin for possible aspiration. Improved, transition to oral abx. Speech eval with recommended diet changes (5) UTI (urinary tract infection) Qualifiers: Urinary tract infection type: acute cystitis Status: AcuteAssessment/Plan : With E. coli. Covered with levofloxacin, culture pending. Growth of e coli (6) Hyponatremia Status: AcuteAssessment/Plan: Present on admit, resolved. (7) COPD (chronic obstructive pulmonary disease) with emphysema Qualifiers: Emphysema type: unspecified Qualifier Code: (J43.9) Emphysema, unspecified Status: ChronicAssessment/Plan: With chronic O2 and steroid dependent hypercapnic and hypoxemic respiratory failure. Appears to be at her baseline today. (8) Diastolic CHF Qualifiers: Congestive heart failure chronicity: acute on chronic Qualifier Code: ( I50.33) Acute on chronic diastolic (congestive) heart failure Status: ChronicAssessment/Plan: Thought to be in exacerbation 07/22, but required increased fluids on 07/23, follow closely. (9) HTN (hypertension), benign Status: ChronicAssessment/Plan: Stable (10) CAD (coronary artery disease) Qualifiers: Coronary Disease-Associated Artery/Lesion type: [place] artery [place] vs. transplanted heart: [place] heart Associated angina: with stable angina Qualifier Code: (I25.118) Atherosclerotic heart disease of [place] coronary artery with other forms of angina pectoris Status: ChronicAssessment/Plan: Troponin borderline due to stress of acute illness, no ACS. (11) Obesity (BMI 30.0-34.9) Status: ChronicAssessment/Plan: Complicates care of chronic respiratory failure, chronic CHF, and mobility in setting of acute and chronic right femur fractures. VTE Prophylaxis: mechanical Disposition: transfer to med/surg
[2016-07-26] MEDS: LEVOFLOXACIN 750 MG TABLET PO SCH (14:24)
[2016-07-27] MEDS: CLINDAMYCIN HCL 150 MG CAPSULE PO SCH ×3 (01:13→13:28)
[2016-07-27] MEDS: TRAMADOL HCL 50 MG TABLET PO PRN ×4 (01:13→14:26)
[2016-07-27] MEDS: SUCRALFATE 1 G TABLET PO SCH ×2 (07:05→12:06)
[2016-07-27] MEDS: ALBUTEROL NEB 2.5 MG/3 ML VIAL.NEB NEB SCH ×2 (08:38→13:33)
[2016-07-27] MEDS: ASPIRIN (ENTERIC COATED) 81 MG TABLET.EC PO SCH (09:18)
[2016-07-27] MEDS: PANTOPRAZOLE 40 MG TABLET DR PO SCH (09:18)
[2016-07-27] MEDS: LEVOFLOXACIN 750 MG TABLET PO SCH (09:18)
[2016-07-27] MEDS: VERAPAMIL HCL 180 MG PO SCH (09:18)
[2016-07-27] MEDS: DOCUSATE SODIUM 100 MG CAPSULE PO SCH (09:18)
[2016-07-27] MEDS: PREDNISONE 10 MG TABLET PO SCH (09:18)
[2016-07-27] MEDS: ISOSORBIDE MONONITRATE 30 MG TAB.SR PO SCH (09:18)
[2016-07-27] MEDS: SERTRALINE HCL 50 MG TABLET PO SCH (09:19)
[2016-07-27] MEDS: CELECOXIB 100 MG CAPSULE PO SCH (09:59)
[2016-07-27 12:32] VITALS: BP 113/73
--- NOTE | 2016-07-27 13:51 | DS ---
ASHLEY HOROWITZ [id number] DATE OF ADMISSION: 07/21/2016 DATE OF DISCHARGE: 07/27/2016 DISCHARGE DIAGNOSIS: Recurrent right femur fracture involving the proximal femur with comminution. OTHER DIAGNOSES: Include: 1. Chronic respiratory failure associated with advanced chronic obstructive pulmonary disease. The patient is on home oxygen therapy. 2. She also has a history of asthma. 3. Chronic essential hypertension. 4. Paroxysmal atrial fibrillation. 5. Chronic diastolic congestive heart failure with pulmonary hypertension. 6. Gastroesophageal reflux disease. 7. Urinary tract infection due to Escherichia coli. 8. Bacterial pneumonia organism unspecified. 9. Acute blood loss anemia. PROCEDURES: The patient was transfused 2 units of packed red blood cells on 07/24/2016. SUMMARY OF ADMISSION AND HOSPITAL COURSE: The patient is an 80-year-old [place] speaking female who has a history of a chronic right femur fracture and is essentially wheelchair bound, but fell from her wheelchair on the day of admission striking her right hip and shoulder. Evaluation in the emergency department showed an acute proximal right femur fracture. It was elected not to surgically treat this due to the patient's prior status. She was referred to the Hospitalist service for pain management and rehab. Over the course of her hospital stay, she developed evidence of urinary tract infection with Escherichia coli and worsening respiratory failure with hypoxia, and was felt to have a pneumonia as well. She was started on Levaquin and clindamycin. Her urine cultures grew Escherichia coli which was sensitive to Levaquin. She received physical therapy, and occupational therapy, as well as pain management. She has been intolerant to opioids, but was able to take tramadol to control her pain. She was also started Celebrex. She had a Bravo catheter placed due to bilateral buttock decubiti present on admission at stage 1 and this was left in place at discharge to help with wound healing. The patient was accepted at [facility] and felt to medical stable for discharge on 07/27/2016. The patient had a drop in her hemoglobin from 10.6 on admission down to 7.6 on 07/24/2016 felt to be due to acute blood loss from the fracture, and was transfused 2 units of packed red blood cells. Post transfusion her hemoglobin was stable at 10. PHYSICAL EXAM: VITAL SIGNS: Discharge vital signs showed a temperature of 98.2, pulse 86, blood pressure 142/93, respirations 22, oxygen saturation of 98% on 1.25 L, and 82% on room air. Body mass index is 33.4. Weight is 67.4 kg. GENERAL: This is an elderly female in no acute distress. HEENT: Unremarkable. LUNGS: Clear to auscultation bilaterally. CARDIOVASCULAR: Exam reveals a regular rate and rhythm without a murmur. ABDOMEN: Soft, nontender, nondistended with positive bowel sounds. EXTREMITIES: Show no peripheral edema. SKIN: See nurse's notes. LABORATORY STUDIES: Laboratory studies on 07/26/2016 her CBC showed a white count of 7.4, hemoglobin 10, and platelet count of 142,000. Chemistry profile on 07/26/2016 showed a sodium of 133, potassium 4.1, creatinine 0.6. DISPOSITION: [facility]. ALLERGIES: INCLUDE ENOXAPARIN, AND HYDROCODONE. CODE STATUS: FULL CODE. INSTRUCTIONS: She will have physical therapy, and occupational therapy services evaluate and treat. As mentioned with a Bravo catheter. Consider removal of the Bravo catheter when her fracture pain has improved, and her decubiti are healing. DISCHARGE MEDICATIONS: Include: 1. Prednisone 10 mg daily. 2. Carafate 1 g before meals at bedtime. 3. [id number] mg daily. 4. Protonix 40 mg by mouth daily. 5. Lisinopril 20 mg by mouth daily. Dose is reduced from twice daily. 6. Imdur SR 30 mg by mouth twice a day. 7. Lasix 20 mg daily. Dose was reduced from 20 mg by mouth twice a day. 8. Colace 100 mg by mouth daily. 9. Enteric coated aspirin 81 mg by mouth daily. 10. Albuterol nebs 2.5 mg every 4 hours as needed for wheezing. 11. Verapamil ER 360 mg by mouth daily. 12. Tramadol 50 to 100 mg every 4 hours as needed for pain. 13. Levaquin 750 mg by mouth daily for 3 more days. 14. Clindamycin 300 mg every 6 hours for 5 more days. 15. Celebrex 100 mg daily for 30 days. TJ/jazzmine cc: Erica Matos MD
== END 2016-07-27 14:35 | DRG 535 ==
LOC: ED 03:37 → MS 05:30 → ICU 07-23 09:54 → MS 07-23 10:01 → ICU 07-23 10:01 → MS 07-26 10:10
PROVIDERS: ADMIT Internal Medicine Hematology & Oncology; ATTEND Internal Medicine
PROC: 30233N1 Transfusion of Nonautologous Red Blood Cells into Peripheral Vein, Percutaneous Approach (ICD-10-PCS; principal; 2016-07-24)
DX: S72.001A Fracture of unspecified part of neck of right femur, initial encounter for closed fracture (principal); I50.33 Acute on chronic diastolic (congestive) heart failure; J15.9 Unspecified bacterial pneumonia; E87.1 Hypo-osmolality and hyponatremia; N39.0 Urinary tract infection, site not specified; N17.9 Acute kidney failure, unspecified; J96.10 Chronic respiratory failure, unspecified whether with hypoxia or hypercapnia; D62 Acute posthemorrhagic anemia; W19.XXXA Unspecified fall, initial encounter; I25.10 Atherosclerotic heart disease of native coronary artery without angina pectoris; I11.0 Hypertensive heart disease with heart failure; D64.9 Anemia, unspecified; E66.9 Obesity, unspecified; Z68.34 Body mass index [BMI] 34.0-34.9, adult; J43.9 Emphysema, unspecified; I48.0 Paroxysmal atrial fibrillation; K21.9 Gastro-esophageal reflux disease without esophagitis; A49.8 Other bacterial infections of unspecified site